=== PATIENT | female | born 1945 | race Caucasian/White ===

== ENCOUNTER → 2022-07-31 | Outpatient (REF) | payer MEDICARE, MEDICAID, OTHER | LOC: M SFHCDERM 17:43 | PROVIDERS: ATTEND Nurse Practitioner Family | DX: L82.1 Other seborrheic keratosis (principal) ==

== ENCOUNTER → 2025-09-12 | Outpatient (REF) | payer MEDICAID, MEDICARE, OTHER | LOC: M SFHCDERM 16:51 | PROVIDERS: ATTEND Nurse Practitioner Family | DX: T14.8XXA Other injury of unspecified body region, initial encounter (principal) ==